=== PATIENT | female | born 1950 | race Caucasian/White ===

== ENCOUNTER 2018-09-23 07:13 | Day surgery (SDC) | payer OTHER ==
--- NOTE | 2018-09-22 10:06 | RAD REPORT ---
EXAM DESCRIPTION: RAD - Chest Pa And Lat (2 Views) - 09/22/2018 9:49 am CLINICAL HISTORY: Preop chest, pending soft tissue mass removal COMPARISON: None. TECHNIQUE: PA and lateral views of the chest were obtained. FINDINGS: The lungs are underinflated. Fibrotic lung pattern is present accentuated by the shallow i nspiration. Lung markings are slightly more pronounced in the left base. There is no indication of an y acute symptoms in this is likely asymmetric fibrosis. No failure or volume overload. Heart size i s normal and central vasculature is within normal limits. No pleural effusion or pneumothorax seen. No acute bony finding noted. No aortic abnormality. IMPRESSION: Shallow inspiration film with fibrotic lung changes evident. No acute cardiopulmonary fi nding.
[2018-09-22 10:32] LABS: Absolute Lymphocytes (CBC) 8.5 K/uL (0.7-4.9); Absolute Monocytes 0.9 K/uL (0.1-1.3); Absolute Neutrophil 11.5 K/uL (1.8-8.0); Basophils % 0.9 % (0-1.3); Hematocrit 45.5 % (36.0-45.0); MPV 10.4 fL (7.6-11.3); Monocytes % 4.3 % (3.3-12.3); RBC Red Blood Cell Count 5.03 M/uL (3.86-4.86)
[2018-09-22 10:49] LABS: Potassium 3.1 mmol/L (3.5-5.1)
[2018-09-22 12:13] LABS: Blood Morphology Comment NOT SEEN (NOT SEEN); Platelet Estimate ADEQ
--- NOTE | 2018-09-22 12:39 | EKG ---
Test Date: 2018-09-22 Test Time: 09:26:56 Paedodontist: DIANNE MEASUREMENT RESULTS: Intervals: Rate: 80 ND: 150 QRSD: 84 QT: 388 QTc: 447 [place]: P: 29 ND: 150 QRS: 20 T: 38 INTERPRETIVE STATEMENTS: Normal sinus rhythm Normal ECG Compared to ECG 08/16/1992 06:07:00 No significant changes Electronically Signed On 09-22-18 12:38:18 CDT by Ian Rowe
[2018-09-23 07:43] LABS: Urine Appearance CLEAR; Urine Bilirubin NEGATIVE (NEG); Urine Blood NEGATIVE (NEG); Urine Color YELLOW; Urine Glucose NEGATIVE (NEG); Urine Protein NEGATIVE (NEG); Urine Specific Gravity 1.025 (1.005-1.030); Urine Urobilinogen 0.2 mg/dL (0.2-1.0)
[2018-09-23] MEDS ORDERED: Ringers Lactate 1,000 ML IV ONE (07:51)
[2018-09-23] MEDS ORDERED: CEFAZOLIN/SWI 1gm 1 GM/10 ML SYR ONE (07:51)
[2018-09-23 07:58] LABS: Urine Microscopic Reflex ORDER UMIC
[2018-09-23 08:04] LABS: Urine Bacteria <20 /HPF (<20); Urine Culture Reflex Order NOT NEEDED; Urine RBC <5 /HPF (NONE SEEN)
[2018-09-23] MEDS ORDERED: PROPOFOL 200 MG/20 ML VIAL IV ONE (08:31)
[2018-09-23] MEDS ORDERED: LIDOCAINE 2% MPF 5 ML VIAL ONE (08:32)
[2018-09-23] MEDS ORDERED: MIDAZOLAM HCL 2 MG/2 ML INJ ONE (08:32)
[2018-09-23] MEDS ORDERED: FENTANYL CITR 100 MCG/2 ML ONE (08:32)
[2018-09-23] MEDS ORDERED: DEXAMETHASONE 4 MG/ML VIAL ONE (08:59)
[2018-09-23] MEDS ORDERED: KETOROLAC 30 MG/ML INJ ONE (08:59)
[2018-09-23] MEDS ORDERED: ONDANSETRON 4 MG/2 ML VIAL ONE (09:23)
--- NOTE | 2018-09-23 09:38 | P.BOP ---
Preoperative diagnosis: tender scalp mass Postoperative diagnosis: same Primary procedure: Excisional biospy of tender scalp mass 3x3 cm Estimated blood loss: <5cc Specimen: mass Findings: scalp mass Anesthesia: General Complications: None Transferred to: Recovery Room Condition: Good
--- NOTE | 2018-09-24 11:42 | OP ---
Date of Procedure: 09/23/2018 Surgeon: Tevin Hines MD Preoperative Diagnosis: Tender scalp mass. Postoperative Diagnosis: Tender scalp mass. Procedure: Excisional biopsy of tender scalp mass, 3 x 3 cm. Specimen: Mass. Findings: The patient has a subcutaneous mass, goes below the skin, well-delineated, pressing on the area down to bone. The mass was completely excised. Indications: This is a case of a 68-year-old who comes with a tender mass on the scalp region. Etio logy of that is unknown. She has been playing with it a little bit, sometimes just thrash it. It is tender. It is increasing in size. She wants that excised. The benefits, alternatives, and risks o f excision fully explained, which include but are not limited to infection, bleeding, damage to adjac ent structures, anesthesia complication, recurrence, RI, and even . She also understands this m ay not relieve any symptoms. She might need more than one surgical intervention. She was explained the importance of following up for the pathology results. Depending on what we find, we may or may n ot do a frozen section. If we do not do frozen section, then we have to wait for the permanent secti on and then and depends on that may require further excision or not. She understood she was going to leave that area with little alopecia, may have an area with no hair growth. She understood and sign ed a consent. The area of concern was marked by me and the patient in the holding room. Procedure In Detail: The patient was brought to the operating room, placed in supine position. Anes thesia was done without complication. The scalp area was prepped and draped in sterile fashion. Loc al anesthesia was applied. I proceeded to make an incision. When I made the incision, I noticed the patient to have a subcutaneous mass, and the skin seems not to be attached, so we did not do the wed ge skin. We removed the lump that goes all the way down to bone. The mass was removed, and the skin does not seem to be involved with the mass. So, we left that area intact to minimize the chance of alopecia in that region. The mass was excised, sent to the pathologist. Hemostasis obtained, and th en after that we proceeded to close the area with interrupted multiple 3-0 nylon. That was after hem ostasis was obtained and irrigation. The patient tolerated the procedure well. Sterile dressing was placed over the area. The patient was sent to Recovery in stable condition. NEMO/PAMELA Voice ID: [id number] Report ID: [id number]
--- NOTE | 2018-09-24 11:45 | DS ---
Date of Discharge: 09/23/2018 Diagnosis: Tender scalp mass. Procedure: Excisional biopsy of tender subcutaneous scalp mass, 3 x 3 cm. Disposition: Home. Activity: As tolerated. No heavy lifting. Followup: Follow up in my office in 1 week. Call for appointment [phone]. Keep area dry for 24 ho urs then may shower, then put triple antibiotics, and protect from direct sunlight. NEMO/PAMELA Voice ID: [id number] Report ID: [id number]
== END 2018-09-23 10:35 | disposition home or self-care (01) ==
LOC: OR 07:13
PROVIDERS: ATTEND Surgery
PROC: 0JB00ZZ Excision of Scalp Subcutaneous Tissue and Fascia, Open Approach (ICD-10-PCS; principal; 2018-09-23 09:00)
DX: L72.11 Pilar cyst (principal); I10 Essential (primary) hypertension; K21.9 Gastro-esophageal reflux disease without esophagitis; E66.9 Obesity, unspecified; Z68.31 Body mass index [BMI] 31.0-31.9, adult; F17.200 Nicotine dependence, unspecified, uncomplicated; Z79.82 Long term (current) use of aspirin; Z82.49 Family history of ischemic heart disease and other diseases of the circulatory system
CPT/HCPCS: 93005; 87088; 85025; 87086; 80048; 36415; 88304; 71046; 11423; J2704; J2250; J3010; J0690; J2405; 81003; 81015

== ENCOUNTER 2024-09-06 15:38 | Emergency (ER) | payer MEDICARE ==
[2024-09-06 17:05] LABS: Anion Gap 12.1 mEq/L (5.0-15.0); Potassium 3.1 mEq/L (3.5-5.1)
[2024-09-06 17:13] LABS: Absolute Basophils 0.1 K/uL (0-0.5); Absolute Eosinophils 0.5 K/uL (0-0.5); Absolute Lymphocytes (CBC) 2.9 K/uL (0.7-4.9); Absolute Monocytes 0.7 K/uL (0.1-1.3); Absolute Neutrophil 6.7 K/uL (1.8-8.0); Basophils % 1.1 % (0-1.3); Eosinophils % 4.2 % (0-4.4); Hematocrit 38.7 % (36.0-45.0); Hemoglobin 12.8 g/dL (12.0-15.0); Lymphocytes % 26.7 % (15.3-44.8); MCH 27.3 pg (27.0-35.0); MCHC 33.1 g/dL (32.0-36.0); MCV 82.2 fL (80-100); Monocytes % 6.7 % (3.3-12.3); Neutrophils % 61.3 % (41.7-73.7); Platelets 289 thou/uL (152-406); Red Cell Distribution Width 22.6 % (12.1-15.2)
--- NOTE | 2024-09-06 17:17 | RAD REPORT ---
Exam:Hip Left 2 View HISTORY: Left hip pain FINDINGS: Left hip arthroplasty. No fracture or dislocation seen.
--- NOTE | 2024-09-06 17:17 | RAD REPORT ---
Exam:Hip Right 2 View HISTORY: Right hip pain FINDINGS: Right hip arthroplasty. Prosthesis in good position. No fracture or dislocation seen.
--- NOTE | 2024-09-06 17:57 | RAD REPORT ---
EXAMINATION: CT HEAD WITHOUT CONTRAST CT CERVICAL SPINE WITHOUT CONTRAST CLINICAL INDICATION: Head and neck injury status post fall. Head and neck pain TECHNIQUE: Axial CT images from the skull base to the vertex without intravenous contrast. Axial CT i mages through the cervical spine were obtained without intravenous contrast. Sagittal and coronal reformatted images were created from the data set. Coronal and sagittal reformatted images were creat ed from the data set. One or more of the following dose reduction techniques were used: Automated exposure control, adjustment of the mA and/or kV according to patient size, and/or iterative reconstr uction. Unless otherwise specified, incidental findings do not require dedicated imaging follow-up. [id number]. Comparison: none FINDINGS: An intracranial bleed is not seen. Ventricles are normal in caliber. Mild to moderate low-density paraventricular, deep and subcortical white matter probably ischemic javon nges secondary to small vessel disease. No extra-axial fluid collection. No fluid within the sinuses/mastoids Images of the cervical spine are degraded by patient motion artifact. No gross fracture or dislocation seen. IMPRESSION: No acute intracranial abnormality noted Suboptimal evaluation of the cervical spine secondary to motion artifact. No gross fracture visualize d.
--- NOTE | 2024-09-06 18:12 | EDPHYS ---
Physician Documentation [facility] Name: Leti Schultz Age: 73 yrs Sex: Female : 1950 Arrival Date: 09/06/2024 Time: 15:38 Bed 26 Private MD: ED Physician Papito Mariscal HPI: 09/06 18:13 This 73 yrs old Unknown Female presents to ER via EMS with complaints of FALL. ms3 18:13 73-year-old female with past medical history of diabetes, hypertension, ms3 hypercholesterolemia, myocardial infarction presents to the emergency department for falls. Patient was discharged from senior living facility earlier today. In discussion with senior living facility patient has home health arranged, wheelchair, bedside commode, hospital bed coming to her house.. Historical: - Allergies: 16:17 No Known Allergies; dd2 - PMHx: 16:17 Diabetes mellitus; Hypertensive disorder; Hypercholesterolemia; Myocardial infarction; dd2 - PSHx: 16:17 HYSTERECTOMY; SILVIA HIP REPLACEMENT; CABG; dd2 - Immunization history:: Adult Immunizations up to date. - Infectious Disease History:: Denies. - Social history:: Smoking status: Patient/guardian denies using tobacco, but has a distant history of tobacco abuse. ROS: 18:13 Constitutional: Negative for fever, and chills. Cardiovascular: Negative for chest ms3 pain, and palpitations. Respiratory: Negative for shortness of breath, cough, wheezing, and pleuritic chest pain, Abdomen/GI: Negative for abdominal pain, nausea, vomiting, diarrhea, and constipation, MS/Extremity: Negative for injury and deformity, Skin: Negative for injury, rash, and discoloration, Exam: 18:13 Constitutional: This is a well developed, well nourished patient who is awake, alert, ms3 and in no acute distress. Cardiovascular: Regular rate and rhythm with a normal S1 and S2. No gallops, murmurs, or rubs. Normal PMI, no JVD. No pulse deficits. Respiratory: Lungs have equal breath sounds bilaterally, clear to auscultation and percussion. No rales, rhonchi or wheezes noted. No increased work of breathing, no retractions or nasal flaring. Abdomen/GI: Soft, non-tender, with normal bowel sounds. No distension or tympany. No guarding or rebound. No evidence of tenderness throughout. Skin: Warm, dry with normal turgor. Normal color with no rashes, no lesions, and no evidence of cellulitis. 18:13 Musculoskeletal/extremity: Right foot in boot. Vital Signs: 16:15 BP 146 / 69; Pulse 72; Resp 17; Temp 98.3; Pulse Ox 98% on R/A; dd2 18:30 BP 134 / 63; Pulse 70; Resp 16; Pulse Ox 98% on R/A; dd2 [place] Coma Score: 16:31 Eye Response: spontaneous(4). Motor Response: obeys commands(6). Verbal Response: dd2 oriented(5). Total: 15. MDM: 15:39 Medical Screening Exam initiated ms3 18:13 Differential diagnosis: abrasion, closed head injury, contusion, fracture, sprain, ms3 strain. Data reviewed: vital signs, nurses notes, lab test result(s), radiologic studies, CT scan, plain films, and as a result, I will discharge patient. Independent interpretation of the following test(s) in the Emergency Department X-Ray: My interpretation is Right hip x-ray image reviewed by me do not reveal fracture. Care significantly affected by the following chronic conditions: Diabetes, Hypertension. Special discussion: I discussed with the patient/guardian in detail that at this point there is no indication for admission to the hospital. It is understood, however, that if the symptoms persist or worsen the patient needs to return immediately for re-evaluation. ED course: Discussed discharge with patient's niece. She understands agrees with plan. Prescription given for wheelchair and bedside commode. Patient will follow-up with her primary care physician, Dr. Desai, tomorrow for help with home health orders.. 05 15:43 Order name: CBC with Diff; Complete Time: 17:41 ms3 09/06 15:43 Order name: BMP; Complete Time: 17:41 ms3 09/06 15:43 Order name: CT Head C Spine; Complete Time: 17:59 ms3 09/06 15:44 Order name: Hip Right 2 View XRAY; Complete Time: 17:41 ms3 09/06 15:44 Order name: Hip Left 2 View XRAY; Complete Time: 17:41 ms3 09/06 16:17 Order name: Labs - recollect needed: purple and green; Complete Time: 16:59 bc6 Administered Medications: No medications were administered Disposition Summary: 09/06/24 18:11 Discharge Ordered Notes: Location: Home ms3 Condition: Stable ms3 Diagnosis - Fall on same level, unspecified ms3 - Muscle weakness (generalized) ms3 Followup: ms3 - With: Denny Desai DO - When: 2 - 3 days - Reason: Recheck today's complaints Discharge Instructions: - Discharge Summary Sheet ms3 - Fall Prevention in the Home, Adult ms3 - Weakness, [id number] ms3 Forms: - Medication Reconciliation Form ms3 - Antibiotic Education ms3 - Prescription Opioid Use ms3 - Patient Portal Instructions ms3 - Leadership Thank You Letter ms3 - SBAR form bc6 Prescriptions: - Wheelchair - One wheelchair unit; ; Refills: 0, Product Selection Permitted ms3 - Bedside commode - use 1 unit RECTAL route Use as Directed; 1 unit; Refills: 0, Product Selection ms3 Permitted Signatures: Dispatcher [employer] Papito Méndez DO DO ms3 Deysi Barillas bc6 HOLLY SAMPSON, RN RN dd2
--- NOTE | 2024-09-06 18:12 | ER ---
Nurse's Notes [facility] Name: Leti Schultz Age: 73 yrs Sex: Female : 1950 Arrival Date: 09/06/2024 Time: 15:38 Bed 26 Private MD: Diagnosis: Fall on same level, unspecified;Muscle weakness (generalized) Presentation: 09/06 16:03 Chief complaint: Chief complaint: EMS states: PT WAS RELEASED FROM [place] IN [place] TODAY DUE dd2 TO 100 DAYS OF INSURANCE COMPLETED AND WENT HOME AND FELL TWICE. PT DENIES LOC, DENIES HITTING HEAD. PT REPORTS THAT NIECE BROKE HER FALL. PT IS WEARING BOOT RT FOOT R/T ANKLE SX IN [place]. 16:15 Coronavirus screen: At this time, the client does not indicate any symptoms associated dd2 with coronavirus-19. Ebola Screen: No symptoms or risks identified at this time. Initial Sepsis Screen: Does the patient meet any 2 criteria? No. Patient's initial sepsis screen is negative. Does the patient have a suspected source of infection? No. Patient's initial sepsis screen is negative. Risk Assessment: Do you want to hurt yourself or someone else? Patient reports no desire to harm self or others. Onset of symptoms was September 06, 2024. 16:15 Method Of Arrival: EMS: [facility] dd2 16:15 Acuity: ISA 3 dd2 Triage Assessment: 16:17 General: Appears in no apparent distress. Behavior is calm, cooperative, appropriate dd2 for age. Pain: Complains of pain in right foot. EENT: No deficits noted. No signs and/or symptoms were reported regarding the EENT system. 16:29 Neuro: No deficits noted. Level of Consciousness is awake, alert, obeys commands, dd2 Oriented to person, place, time, situation, Appropriate for age. Cardiovascular: No deficits noted. Patient's skin is warm and dry. Respiratory: No deficits noted. Airway is patent Respiratory effort is even, unlabored, Respiratory pattern is regular, symmetrical. GI: No deficits noted. No signs and/or symptoms were reported involving the gastrointestinal system. Abdomen is non-distended, obese, Abd is soft and non tender X 4 quads. : No deficits noted. No signs and/or symptoms were reported regarding the genitourinary system. Derm: No deficits noted. No signs and/or symptoms reported regarding the dermatologic system. Musculoskeletal: Circulation, motion, and sensation intact. Range of motion: PT HAS LIMITED ROM IN RLE. RT FOOT IN SURGICAL BOOT DUE TO RT ANKLE SURGERY APPROX 3 MONTHS PRIOR. Reports pain in left hip and right hip and right foot. Historical: - Allergies: 16:17 No Known Allergies; dd2 - PMHx: 16:17 Diabetes mellitus; Hypertensive disorder; Hypercholesterolemia; Myocardial infarction; dd2 - PSHx: 16:17 HYSTERECTOMY; SILVIA HIP REPLACEMENT; CABG; dd2 - Immunization history:: Adult Immunizations up to date. - Infectious Disease History:: Denies. - Social history:: Smoking status: Patient/guardian denies using tobacco, but has a distant history of tobacco abuse. Screenin:31 [facility] ED Fall Risk Assessment (Adult) History of falling in the last 3 months, dd2 including since admission Yes- physiologic fall (2 pts) Confusion or Disorientation No (0 pts) Intoxicated or Sedated No (0 pts) Impaired Gait Yes (1 pt) Mobility Assist Device Used Yes (1 pt) Altered Elimination No (0 pt) Score/Fall Risk Level 3 or more points = High Risk Oriented to surroundings, Maintained a safe environment, Educated pt \T\ family on fall prevention, incl call for assistance when getting out of bed, Assessed \T\ reinforced patient's understanding of fall precautions, Hourly rounding (assess needs \T\ fall precautionary measures) done, Used ambulatory aids as needed (educated on \T\ assisted with), Offered frequent toileting (1:1 observation). Abuse screen: Denies threats or abuse. Denies injuries from another. Nutritional screening: No deficits noted. Tuberculosis screening: No symptoms or risk factors identified. Assessment: 16:31 Reassessment: SEE TRIAGE ASSESSMENT FOR FULL ASSESSMENT. dd2 Vital Signs: 16:15 BP 146 / 69; Pulse 72; Resp 17; Temp 98.3; Pulse Ox 98% on R/A; dd2 18:30 BP 134 / 63; Pulse 70; Resp 16; Pulse Ox 98% on R/A; dd2 [place] Coma Score: 16:31 Eye Response: spontaneous(4). Motor Response: obeys commands(6). Verbal Response: dd2 oriented(5). Total: 15. ED Course: 15:39 Patient arrived in ED. ms3 15:39 Nixon Millan MD is Attending Physician. sp3 15:40 Attending Physician role handed off by Nixon Millan MD ms3 15:40 Papito Mariscal DO is Attending Physician. ms3 16:00 HOLLY SAMPSON, ZEKE is Primary Nurse. dd2 16:15 Arm band placed on right wrist. dd2 16:17 Triage completed. dd2 16:30 Hip Right 2 View XRAY In Process Unspecified. EDMS 16:30 Hip Left 2 View XRAY In Process Unspecified. EDMS 16:31 Patient has correct armband on for positive identification. Bed in low position. Call dd2 light in reach. Side rails up X2. Client placed on continuous cardiac and pulse oximetry monitoring. NIBP monitoring applied. Door closed. Noise minimized. Warm blanket given. Pillow given. Verbal reassurance given. 16:31 No provider procedures requiring assistance completed. Initial lab(s) drawn, by ED dd2 staff, sent to lab. Inserted saline lock: 22 gauge in right wrist, using aseptic technique. Blood collected. Flushed with 10 mL NS. Patient maintains SpO2 saturation greater than 95% on room air. 16:57 CT Head C Spine In Process Unspecified. EDMS 18:11 Denny Desai DO is Referral Physician. ms3 18:30 Provided Education on: D/C EDUCATION. dd2 18:30 IV discontinued, intact, bleeding controlled, No redness/swelling at site. Pressure dd2 dressing applied. Administered Medications: No medications were administered Medication: 16:31 VIS not applicable for this client. dd2 Outcome: 18:11 Discharge ordered by . ms3 18:30 Discharged to home via ambulance, dd2 18:30 Condition: stable 18:30 Discharge instructions given to patient, family, Instructed on discharge instructions, follow up and referral plans. Demonstrated understanding of instructions, follow-up care, 18:46 Patient left the ED. dd2 Signatures: Dispatcher [employer] EDRI Papito Mariscal DO DO ms3 Nixon Millan MD MD sp3 HOLLY SAMPSON, RN RN dd2 Corrections: (The following items were deleted from the chart) 16:17 16:03 Chief complaint: dd2 dd2 16:31 16:17 EENT: No deficits noted. No signs and/or symptoms were reported regarding the dd2 EENT system. dd2 17:55 16:29 Musculoskeletal: Circulation, motion, and sensation intact. Range of motion: dd2 intact in all extremities, Reports pain in left hip and right hip and right foot dd2
[2024-09-06 19:39] VITALS: TEMP 98.3; O2SAT 98
[2024-09-06 19:41] VITALS: BP 134/63
== END 2024-09-06 18:46 | disposition home or self-care (01) ==
LOC: ER 15:38
DX: M62.81 Muscle weakness (generalized) (principal); W18.30XA Fall on same level, unspecified, initial encounter; E11.9 Type 2 diabetes mellitus without complications; I10 Essential (primary) hypertension; I25.2 Old myocardial infarction; Z95.1 Presence of aortocoronary bypass graft; Z96.643 Presence of artificial hip joint, bilateral
CPT/HCPCS: 36415; 70450; 72125; 80048; 85025; 99284

== ENCOUNTER 2024-09-13 08:46 | Emergency (ER) | payer MEDICARE ==
[2024-09-13 11:05] LABS: Albumin 3.2 g/dL (3.4-5.0); Albumin/Globulin Ratio 0.9 (1.1-1.8); Anion Gap 11.2 mEq/L (5.0-15.0); Bilirubin Total 0.3 mg/dL (0.2-1.0); Globulin 3.5 g/dL (2.3-3.5); Potassium 3.2 mEq/L (3.5-5.1); Protein, Total 6.7 g/dL (6.4-8.2)
[2024-09-13 11:13] LABS: Absolute Basophils 0.1 K/uL (0-0.5); Absolute Eosinophils 0.6 K/uL (0-0.5); Absolute Monocytes 0.6 K/uL (0.1-1.3); Absolute Neutrophil 3.5 K/uL (1.8-8.0); Basophils % 1.8 % (0-1.3); Eosinophils % 8.6 % (0-4.4); Hematocrit 37.1 % (36.0-45.0); Hemoglobin 12.3 g/dL (12.0-15.0); Lymphocytes % 29.7 % (15.3-44.8); MCH 26.8 pg (27.0-35.0); MCV 81.2 fL (80-100); Monocytes % 9.5 % (3.3-12.3); Neutrophils % 50.4 % (41.7-73.7); Nucleated Red Blood Cells % 0.2 % (0-0); Platelets 283 thou/uL (152-406); RBC Red Blood Cell Count 4.57 M/uL (3.86-4.86); Red Cell Distribution Width 21.1 % (12.1-15.2)
--- NOTE | 2024-09-13 11:36 | RAD REPORT ---
EXAMINATION: CT Abdomen Pelvis W Contrast CLINICAL INDICATION: Female, 73 years old. ABD PAIN TECHNIQUE: CT abdomen and pelvis was performed, after the administration of IV contrast, as per [facility] protocol. Axial, sagittal and coronal reconstructions were obtained. One or more of the following dose reduction techniques were used: Automated exposure control, adjustment of the mA and k V according to patient size, and iterative reconstruction. Unless otherwise specified, incidental findings do not require dedicated imaging follow-up. COMPARISON: No prior exam. FINDINGS: LOWER CHEST: Bibasilar peripheral predominant reticular opacities with volume loss, suggesting chroni c interstitial or fibrotic lung disease. LIVER: Normal in size and contour. No focal lesion. BILIARY SYSTEM: Small layering gallstones near the fundus. No other suspicious abnormalities. SPLEEN: Normal size. No focal lesion. PANCREAS: No mass, ductal dilation, or tony-pancreatic fluid. ADRENALS: Nonnodular bilateral symmetric thickening nonspecific; with no mass. KIDNEYS: Normal size and contour apart from focus of peripheral cortical mineralization anteriorly on the right. No hydronephrosis. Right lower calyx calculi, collectively measuring up to 8 mm. URINARY BLADDER: Unremarkable. GASTROINTESTINAL TRACT: No evidence of free air, significant intra-abdominal free fluid, bowel obstru ction or abscess. APPENDIX: Normal appendix. LYMPH NODES: No lymphadenopathy. MUSCULOSKELETAL: No acute or suspicious osseous abnormality. ADDITIONAL FINDINGS: None. IMPRESSION: Nonobstructing right lower renal calyx calculi up to 8mm in transverse dimension. Mild cholelithiasis and other incidental findings as above. No other acute or concerning abnormalities seen in the abdomen or pelvis.
[2024-09-13 14:18] LABS: Anisocytosis 1+; Blood Morphology Comment NOTED (NOT SEEN); Platelet Estimate ADEQ; White Blood Cell Scan OK (OK)
--- NOTE | 2024-09-13 14:40 | ER ---
Nurse's Notes [facility] Name: Leti Schultz Age: 73 yrs Sex: Female : 1950 Arrival Date: 09/13/2024 Time: 08:46 Bed 18 Private MD: Diagnosis: Constipation;Lower abdominal pain, unspecified Presentation: 09/13 08:52 Chief complaint: Patient states: she hasn't had a bowel movement in 6 days. patient ap3 reports that her last bowel movement was 5/13 and was "just water". patient states she has still been eating and tolerating it until yesterday when she began getting nauseated and vomiting. patient currently rates her abdominal pain as a 5/10 on the pain scale. Coronavirus screen: At this time, the client does not indicate any symptoms associated with coronavirus-19. Ebola Screen: No symptoms or risks identified at this time. Initial Sepsis Screen: Does the patient meet any 2 criteria? No. Patient's initial sepsis screen is negative. Does the patient have a suspected source of infection? No. Patient's initial sepsis screen is negative. Risk Assessment: Do you want to hurt yourself or someone else? Patient reports no desire to harm self or others. Onset of symptoms was September 07, 2024. 08:52 Method Of Arrival: EMS: [facility] ap3 08:52 Acuity: ISA 3 ap3 Triage Assessment: 08:54 General: Appears in no apparent distress. Behavior is calm, cooperative, appropriate ap3 for age. Pain: Complains of pain in abdomen Pain currently is 5 out of 10 on a pain scale. Neuro: Level of Consciousness is awake, alert, obeys commands, Oriented to person, place, time, situation, Appropriate for age. Cardiovascular: Patient's skin is warm and dry. Respiratory: Airway is patent Respiratory effort is even, unlabored, Respiratory pattern is regular, symmetrical. GI: Reports constipation, nausea, vomiting. Historical: - Allergies: 08:54 No Known Allergies; ap3 - PMHx: 08:54 diabetes mellitus; Hypercholesterolemia; Hypertensive disorder; Myocardial infarction; ap3 - PSHx: 08:54 Amrik hip replacement; CABG; hysterectomy; ap3 - Immunization history:: Client reports receiving the 2nd dose of the Covid vaccine, Flu vaccine is not up to date. - Infectious Disease History:: Denies. - Social history:: Smoking status: Patient denies any tobacco usage or history of. Screenin:55 [facility] ED Fall Risk Assessment (Adult) History of falling in the last 3 months, ap3 including since admission Yes- fall prone (multiple falls) (3 pts) Confusion or Disorientation No (0 pts) Intoxicated or Sedated No (0 pts) Impaired Gait Yes (1 pt) Mobility Assist Device Used Yes (1 pt) Altered Elimination Yes (1 pt) Score/Fall Risk Level 3 or more points = High Risk Oriented to surroundings, Maintained a safe environment, Educated pt \\T\\ family on fall prevention, incl call for assistance when getting out of bed, Assessed \\T\\ reinforced patient's understanding of fall precautions, Hourly rounding (assess needs \\T\\ fall precautionary measures) done, Implemented a Fall Risk Plan of Care, Remained w/in arm's length of patient and in sight while toileting, Remained with patient while ambulating, Utilized family, sitter, or virtual compliance attorney as indicated. Abuse screen: Denies threats or abuse. Nutritional screening: No deficits noted. Tuberculosis screening: No symptoms or risk factors identified. Assessment: 10:00 General: Appears ill, well developed, well nourished, Behavior is calm, cooperative, me1 appropriate for age, Reports she hasn't had a bowel movement in 6 days. patient reports that her last bowel movement was 5/13 and was "just water". patient states she has still been eating and tolerating it until yesterday when she began getting nauseated and vomiting. patient currently rates her abdominal pain as a 5/10 on the pain scale. Pain: Complains of pain in abdomen Pain does not radiate. Pain currently is 5 out of 10 on a pain scale. Quality of pain is described as crampy, Pain began gradually, Is continuous. Neuro: Level of Consciousness is awake, alert, obeys commands, Oriented to person, place, time, situation, Appropriate for age. Cardiovascular: Patient's skin is warm and dry. Respiratory: Airway is patent Respiratory effort is even, unlabored, Respiratory pattern is regular, symmetrical. GI: Abdomen is round Bowel sounds present X 4 quads. Abd is soft X 4 quads. : No signs and/or symptoms were reported regarding the genitourinary system. EENT: No signs and/or symptoms were reported regarding the EENT system. Derm: Skin is intact, is healthy with good turgor, Skin is pink, warm \\T\\ dry. Musculoskeletal: No signs and/or symptoms reported regarding the musculoskeletal system. Vital Signs: 08:52 BP 148 / 59; Pulse 69; Resp 17; Temp 98.1(O); Pulse Ox 96% ; Weight 78.02 kg; Height 5 ap3 ft. 2 in. ; Pain 5/10; 09:55 BP 160 / 66; Pulse 68; Resp 17; Pulse Ox 97% on R/A; ap3 10:30 BP 137 / 68; Pulse 70; Resp 16; Pulse Ox 95% ; me1 11:15 BP 157 / 95; Pulse 68; Resp 15; Pulse Ox 96% ; me1 12:00 BP 153 / 76; Pulse 70; Resp 13; Pulse Ox 97% ; me1 13:00 BP 157 / 72; Pulse 70; Resp 14; Pulse Ox 98% ; me1 14:00 BP 141 / 62; Pulse 72; Resp 15; Pulse Ox 97% ; me1 15:00 BP 132 / 83; Pulse 76; Resp 13; Pulse Ox 96% ; me1 15:40 BP 132 / 83; Pulse 76; Resp 13; Temp 98.4; Pulse Ox 96% ; me1 08:52 Body Mass Index 31.46 (78.02 kg, 157.48 cm) ap3 08:52 Pain Scale: Adult ap3 ED Course: 08:49 Patient arrived in ED. ms3 08:49 Papito Mariscal DO is Attending Physician. ms3 08:51 Janett Lind, RN is Primary Nurse. ap3 08:54 Triage completed. ap3 08:55 Arm band placed on right wrist. ap3 08:55 Patient has correct armband on for positive identification. Bed in low position. Call ap3 light in reach. Side rails up X2. Adult w/ patient. Provided Education on: fall risk education. Client placed on continuous cardiac and pulse oximetry monitoring. NIBP monitoring applied. nuclear monitoring technician on. Pulse ox on. NIBP on. Sitter at bedside. Door closed. Noise minimized. 10:00 No provider procedures requiring assistance completed. me1 10:41 CBC with Diff Sent. me1 10:41 CMP Sent. me1 10:41 Initial lab(s) drawn, by me, sent to lab. Inserted saline lock: 22 gauge in right me1 forearm, using aseptic technique. 10:42 CT Abd/Pelvis - IV Contrast Only In Process Unspecified. EDMS 16:18 IV discontinued, intact, bleeding controlled, No redness/swelling at site. Pressure me1 dressing applied. Administered Medications: 13:57 Drug: soap suds en 1 units CA once Route: CA; me1 15:27 Follow up: Response: No adverse reaction; Marked relief of symptoms me1 Medication: 10:00 VIS not applicable for this client. me1 Outcome: 14:40 Discharge ordered by . ms3 16:25 Discharged to home via ambulance, me1 16:25 Condition: stable 16:25 Discharge instructions given to patient, family, Instructed on discharge instructions, follow up and referral plans. Demonstrated understanding of instructions, follow-up care, 16:25 Patient left the ED. me1 Signatures: Dispatcher [employer] Janett Benitez RN RN ap3 Papito Mariscal DO DO ms3 Eufemia Aj RN RN me1 Corrections: (The following items were deleted from the chart) 11:25 08:52 Chief complaint: Patient states: she hasn't had a bowel movement in 6 days. me1 patient reports that her last bowel movement was 5/13 and was "just water". patient states she has still been eating and tolerating it until yesterday when she began getting nauseated and vomiting. patient currently rates her abdominal pain as a 5/10 on the pain scale. ap3 15:27 15:27 Response: No adverse reaction; Pain is decreased me1 me1
--- NOTE | 2024-09-13 14:40 | EDPHYS ---
Physician Documentation [facility] Name: Leti Schultz Age: 73 yrs Sex: Female : 1950 Arrival Date: 09/13/2024 Time: 08:46 Bed 18 Private MD: ED Physician Papito Mariscal HPI: 09/13 17:51 This 73 yrs old Unknown Female presents to ER via EMS with complaints of Constipation. ms3 17:51 73-year-old female past medical history of diabetes, hypercholesterolemia, ms3 hypertension, myocardial infarction presents to the emergency department for constipation. Patient states she has not had a bowel movement for 6 days. Patient notes she is also having right lower quadrant abdominal pain that she rates a 4-510.. Historical: - Allergies: 08:54 No Known Allergies; ap3 - PMHx: 08:54 diabetes mellitus; Hypercholesterolemia; Hypertensive disorder; Myocardial infarction; ap3 - PSHx: 08:54 Amrik hip replacement; CABG; hysterectomy; ap3 - Immunization history:: Client reports receiving the 2nd dose of the Covid vaccine, Flu vaccine is not up to date. - Infectious Disease History:: Denies. - Social history:: Smoking status: Patient denies any tobacco usage or history of. ROS: 17:51 Constitutional: Negative for fever, and chills. Cardiovascular: Negative for chest ms3 pain, and palpitations. Respiratory: Negative for shortness of breath, cough, wheezing, and pleuritic chest pain, 17:51 MS/Extremity: Negative for injury and deformity, Skin: Negative for injury, rash, and discoloration, 17:51 Abdomen/GI: Positive for abdominal pain, constipation, Exam: 17:51 Constitutional: This is a well developed, well nourished patient who is awake, alert, ms3 and in no acute distress. Cardiovascular: Regular rate and rhythm with a normal S1 and S2. No gallops, murmurs, or rubs. Normal PMI, no JVD. No pulse deficits. Respiratory: Lungs have equal breath sounds bilaterally, clear to auscultation and percussion. No rales, rhonchi or wheezes noted. No increased work of breathing, no retractions or nasal flaring. 17:51 Skin: Warm, dry with normal turgor. Normal color with no rashes, no lesions, and no evidence of cellulitis. 17:51 Abdomen/GI: Inspection: abdomen appears normal, Bowel sounds: normal, Palpation: moderate abdominal tenderness, in the right lower quadrant, Vital Signs: 08:52 BP 148 / 59; Pulse 69; Resp 17; Temp 98.1(O); Pulse Ox 96% ; Weight 78.02 kg; Height 5 ap3 ft. 2 in. ; Pain 5/10; 09:55 BP 160 / 66; Pulse 68; Resp 17; Pulse Ox 97% on R/A; ap3 10:30 BP 137 / 68; Pulse 70; Resp 16; Pulse Ox 95% ; me1 11:15 BP 157 / 95; Pulse 68; Resp 15; Pulse Ox 96% ; me1 12:00 BP 153 / 76; Pulse 70; Resp 13; Pulse Ox 97% ; me1 13:00 BP 157 / 72; Pulse 70; Resp 14; Pulse Ox 98% ; me1 14:00 BP 141 / 62; Pulse 72; Resp 15; Pulse Ox 97% ; me1 15:00 BP 132 / 83; Pulse 76; Resp 13; Pulse Ox 96% ; me1 15:40 BP 132 / 83; Pulse 76; Resp 13; Temp 98.4; Pulse Ox 96% ; me1 08:52 Body Mass Index 31.46 (78.02 kg, 157.48 cm) ap3 08:52 Pain Scale: Adult ap3 MDM: 08:49 Medical Screening Exam initiated ms3 17:51 Differential diagnosis: appendicitis, bowel obstruction, non-specific abd pain. Data ms3 reviewed: vital signs, nurses notes, lab test result(s), radiologic studies, and as a result, I will discharge patient. I considered the following discharge prescriptions or medication management in the emergency department Medications were administered in the Emergency Department. See MAR. Counseling: I had a detailed discussion with the patient and/or guardian regarding the historical points, exam findings, and any diagnostic results supporting the discharge/admit diagnosis, lab results, radiology results, the need for outpatient follow up, to return to the emergency department if symptoms worsen or persist or if there are any questions or concerns that arise at home. Special discussion: Based on the patient's Hx, exam, and Dx evaluation, there is no indication for emergent surgery or inpatient Tx. It is understood by the patient/guardian that if the Sx's persist or worsen they need to return immediately for re-evaluation. ED course: Discussed labs and imaging with patient and her daughter. Patient to follow-up with primary care physician in 2 to 3 days. All questions were answered. Return precautions discussed include worsening symptoms, or any other concerns. Patient states her symptoms have improved after soapsuds enema.. 09/13 10:21 Order name: CBC with Diff ms3 09/13 10:21 Order name: CMP; Complete Time: 11:19 ms3 09/13 11:20 Order name: CBC Smear Scan EDMS 09/13 10:21 Order name: CT Abd/Pelvis - IV Contrast Only; Complete Time: 11:38 ms3 09/13 10:21 Order name: IV Saline Lock; Complete Time: 10:41 ms3 09/13 10:21 Order name: Labs collected and sent; Complete Time: 10:41 ms3 Administered Medications: 13:57 Drug: soap suds en 1 units WI once Route: WI; me1 15:27 Follow up: Response: No adverse reaction; Marked relief of symptoms me1 Disposition Summary: 09/13/24 14:40 Discharge Ordered Notes: Location: Home ms3 Condition: Stable ms3 Diagnosis - Constipation ms3 - Lower abdominal pain, unspecified ms3 Followup: ms3 - With: Private Physician - When: 2 - 3 days - Reason: Recheck today's complaints Discharge Instructions: - Discharge Summary Sheet ms3 - Abdominal Pain, Adult ms3 - Constipation, Adult ms3 Forms: - Medication Reconciliation Form ms3 - Antibiotic Education ms3 - Prescription Opioid Use ms3 - Patient Portal Instructions ms3 - Leadership Thank You Letter ms3 Signatures: Dispatcher [employer] Janett Benitez, RN RN ap3 Papito Mariscal DO DO ms3 Eufemia Aj RN RN me1
[2024-09-13 16:44] VITALS: BP 132/83; O2SAT 96
[2024-09-13 16:45] VITALS: TEMP 98.4
== END 2024-09-13 16:25 | disposition home or self-care (01) ==
LOC: ER 08:46
DX: K59.00 Constipation, unspecified (principal); E11.9 Type 2 diabetes mellitus without complications; I10 Essential (primary) hypertension; Z95.1 Presence of aortocoronary bypass graft; Z96.643 Presence of artificial hip joint, bilateral
CPT/HCPCS: 85025; 36415; 80053; 74177; 99285; Q9967

== ENCOUNTER 2024-09-15 09:01 | Observation (INO) | payer MEDICARE ==
[2024-09-15] MEDS ORDERED: ALBUTEROL 2.5 MG/3 ML NEB SOL ONE (12:44)
[2024-09-15 13:42] LABS: Absolute Eosinophils 0.6 K/uL (0-0.5); Absolute Lymphocytes (CBC) 2.5 K/uL (0.7-4.9); Absolute Monocytes 0.8 K/uL (0.1-1.3); Absolute Neutrophil 4.3 K/uL (1.8-8.0); Basophils % 0.2 % (0-1.3); Eosinophils % 7.8 % (0-4.4); Hematocrit 35.7 % (36.0-45.0); Hemoglobin 11.9 g/dL (12.0-15.0); Lymphocytes % 30.7 % (15.3-44.8); MCH 27.1 pg (27.0-35.0); MCHC 33.3 g/dL (32.0-36.0); MCV 81.4 fL (80-100); MPV 8.6 fL (7.6-11.3); Monocytes % 9.3 % (3.3-12.3); Nucleated Red Blood Cells % 0.1 % (0-0); Platelets 296 thou/uL (152-406); RBC Red Blood Cell Count 4.38 M/uL (3.86-4.86); Red Cell Distribution Width 20.7 % (12.1-15.2)
[2024-09-15 14:00] LABS: Albumin 3.3 g/dL (3.4-5.0); Alkaline Phosphatase 108 U/L (45-117); Anion Gap 7.4 mEq/L (5.0-15.0); BUN Blood Urea Nitrogen 17 mg/dL (7-18); Bicarbonate 29 mEq/L (21-32); Bilirubin Total 0.3 mg/dL (0.2-1.0); Globulin 3.3 g/dL (2.3-3.5); Glomerular Filtration Rate 71 ml/min (=/>90); Glucose Level 101 mg/dL (74-106); Potassium 3.4 mEq/L (3.5-5.1); Protein, Total 6.6 g/dL (6.4-8.2); Sodium Level 139 mEq/L (136-145)
[2024-09-15 14:02] LABS: ALT/SGPT < 14 U/L (13-56); AST/SGOT < 10 U/L (15-37)
[2024-09-15 14:22] LABS: Anisocytosis 1+; Blood Morphology Comment NOTED (NOT SEEN); Microcytosis SLIGHT; Platelet Estimate ADEQ; White Blood Cell Scan OK (OK)
--- NOTE | 2024-09-15 17:27 | ER ---
Nurse's Notes [facility] Name: Leti Schultz Age: 73 yrs Sex: Female : 1950 Arrival Date: 09/15/2024 Time: 09:01 Bed 13 Private MD: Diagnosis: generalized weakness, debility Presentation: 09/15 09:12 Chief complaint: EMS states: C[facility]GIVER ADMITTED LAST NIGHT. PT CALLED 911 FOR FEAR OF bp NOT BEING TAKEN CARE OF. Coronavirus screen: At this time, the client does not indicate any symptoms associated with coronavirus-19. Ebola Screen: No symptoms or risks identified at this time. Initial Sepsis Screen: Does the patient meet any 2 criteria? No. Patient's initial sepsis screen is negative. Does the patient have a suspected source of infection? No. Patient's initial sepsis screen is negative. Risk Assessment: Do you want to hurt yourself or someone else? Patient reports no desire to harm self or others. Onset of symptoms is unknown. Care prior to arrival: Glucose check: 116. 09:12 Method Of Arrival: EMS: [facility] bp 09:12 Acuity: ISA 3 bp Triage Assessment: 09:13 General: Appears in no apparent distress. obese, unkempt, Behavior is cooperative, bp appropriate for age, anxious. Pain: Denies pain. EENT: No deficits noted. Neuro: No deficits noted. Cardiovascular: No deficits noted. Respiratory: No deficits noted. GI: No signs and/or symptoms were reported involving the gastrointestinal system. : No signs and/or symptoms were reported regarding the genitourinary system. Derm: No deficits noted. Musculoskeletal: No deficits noted. Historical: - Allergies: 09:13 No Known Allergies; bp - PMHx: 09:13 Myocardial infarction; Hypertensive disorder; diabetes mellitus; Hypercholesterolemia; bp - PSHx: 09:13 hysterectomy; CABG; Amrik hip replacement; bp - Immunization history:: Adult Immunizations up to date. - Infectious Disease History:: Denies. - Social history:: Smoking status: Patient denies any tobacco usage or history of. - Family history:: not pertinent. Screenin:14 [facility] ED Fall Risk Assessment (Adult) History of falling in the last 3 months, bp including since admission No falls in past 3 months (0 pts) Confusion or Disorientation No (0 pts) Intoxicated or Sedated No (0 pts) Impaired Gait Yes (1 pt) Mobility Assist Device Used Yes (1 pt) Altered Elimination No (0 pt) Score/Fall Risk Level 3 or more points = High Risk Oriented to surroundings. Abuse screen: Denies threats or abuse. Denies injuries from another. Nutritional screening: No deficits noted. Tuberculosis screening: No symptoms or risk factors identified. Assessment: 09:14 General: SEE TRIAGE NOTE. bp 14:00 Reassessment: Patient appears in no apparent distress at this time. Patient and/or kj2 family updated on plan of care and expected duration. Pain level reassessed. Patient is alert, oriented x 3, equal unlabored respirations, skin warm/dry/pink. 14:35 Reassessment: Patient appears in no apparent distress at this time. Patient and/or kj2 family updated on plan of care and expected duration. Pain level reassessed. Patient is alert, oriented x 3, equal unlabored respirations, skin warm/dry/pink. 15:35 Reassessment: Patient appears in no apparent distress at this time. Patient and/or kj2 family updated on plan of care and expected duration. Pain level reassessed. Patient is alert, oriented x 3, equal unlabored respirations, skin warm/dry/pink. 16:35 Reassessment: Patient appears in no apparent distress at this time. Patient and/or kj2 family updated on plan of care and expected duration. Pain level reassessed. Patient is alert, oriented x 3, equal unlabored respirations, skin warm/dry/pink. 17:35 Reassessment: Patient appears in no apparent distress at this time. Patient and/or kj2 family updated on plan of care and expected duration. Pain level reassessed. Patient is alert, oriented x 3, equal unlabored respirations, skin warm/dry/pink. 18:22 Reassessment: Patient appears in no apparent distress at this time. Patient and/or kj2 family updated on plan of care and expected duration. Pain level reassessed. Patient is alert, oriented x 3, equal unlabored respirations, skin warm/dry/pink. 19:15 Reassessment: Patient appears in no apparent distress at this time. Patient and/or kj2 family updated on plan of care and expected duration. Pain level reassessed. Patient is alert, oriented x 3, equal unlabored respirations, skin warm/dry/pink. Vital Signs: 09:12 BP 161 / 83; Pulse 70; Resp 15; Temp 97.5; Pulse Ox 93% on R/A; bp 14:00 BP 137 / 86; Pulse 70; Resp 18; Pulse Ox 97% on R/A; kj2 14:35 BP 135 / 84; Pulse 72; Resp 18; Pulse Ox 100% on R/A; kj2 15:35 BP 134 / 82; Pulse 70; Resp 18; Pulse Ox 100% on R/A; kj2 16:35 BP 132 / 80; Pulse 74; Resp 18; Pulse Ox 100% on R/A; kj2 19:15 BP 130 / 78; Pulse 72; Resp 20; Temp 98; Pulse Ox 100% on R/A; kj2 ED Course: 09:11 Patient arrived in ED. bp 09:12 Harsh Lima MD is Attending Physician. rt 09:13 Triage completed. bp 09:13 Arm band placed on. bp 09:14 Patient has correct armband on for positive identification. bp 09:32 Door closed. Warm blanket given. Repositioned patient. Cleaned of incontinence. Linen bc6 changed. 12:50 Andrew Pabon, RN is Primary Nurse. bp 13:33 Initial lab(s) drawn, by me, sent to lab. bp 14:00 Report received from ZEKE Morales. kj2 17:26 Randy Silva MD is Hospitalizing Provider. rt 20:32 No provider procedures requiring assistance completed. kj2 20:33 Provided Education on: reason for admit. kj2 20:33 Patient did not have IV access during this emergency room visit. kj2 Administered Medications: 12:50 Drug: Albuterol Inhalation 2.5 mg Inhalation once Route: Inhalation; bp 18:23 Drug: Oxymetazoline Intranasal Drops (0.05 %) 1 sprays Intranasal once Route: kj2 Intranasal; Site: both nares; Medication: 09:14 VIS not applicable for this client. bp Outcome: 17:26 Decision to Hospitalize by Provider. rt 20:32 Admitted to Med/surg accompanied by tech, via stretcher, kj2 20:32 Condition: stable 20:32 Instructed on the need for admit, 20:34 Patient left the ED. kj2 Signatures: Andrew Pabon RN RN bp Harsh Lima MD MD rt Deysi Barillas bc6 Jessica Lino, RN RN kj2
--- NOTE | 2024-09-15 17:27 | EDPHYS ---
Physician Documentation [facility] Name: Leti Schultz Age: 73 yrs Sex: Female : 1950 Arrival Date: 09/15/2024 Time: 09:01 Bed 13 Private MD: ED Physician Harsh Lima HPI: 09/15 09:37 This 73 yrs old Unknown Female presents to ER via EMS with complaints of SOCIAL ISSUE. rt 09:37 Patient lives at home with a caregiver who primarily attend to her ADLs. This caregiver rt was admitted to the hospital. The patient states that she is unable to walk, go to the bathroom, feed herself. She called 911 because she was concerned that she had no one to take care of her. States that she has no local family. Denies other acute complaints at this time. Historical: - Allergies: 09:13 No Known Allergies; bp - PMHx: 09:13 Myocardial infarction; Hypertensive disorder; diabetes mellitus; Hypercholesterolemia; bp - PSHx: 09:13 hysterectomy; CABG; Amrik hip replacement; bp - Immunization history:: Adult Immunizations up to date. - Infectious Disease History:: Denies. - Social history:: Smoking status: Patient denies any tobacco usage or history of. - Family history:: not pertinent. ROS: 09:37 Constitutional: Negative for fever, chills, and weight loss, Cardiovascular: Negative rt for chest pain, palpitations, and edema, Respiratory: Negative for shortness of breath, cough, wheezing, and pleuritic chest pain, Abdomen/GI: Negative for abdominal pain, nausea, vomiting, diarrhea, and constipation, Skin: Negative for injury, rash, and discoloration, Exam: 09:37 Constitutional: This is a well developed, well nourished patient who is awake, alert, rt and in no acute distress. Head/Face: Normocephalic, atraumatic. Chest/axilla: Normal chest wall appearance and motion. Nontender with no deformity. No lesions are appreciated. Cardiovascular: Regular rate and rhythm with a normal S1 and S2. No gallops, murmurs, or rubs. Normal PMI, no JVD. No pulse deficits. Respiratory: Lungs have equal breath sounds bilaterally, clear to auscultation and percussion. No rales, rhonchi or wheezes noted. No increased work of breathing, no retractions or nasal flaring. Abdomen/GI: Soft, non-tender, with normal bowel sounds. No distension or tympany. No guarding or rebound. No evidence of tenderness throughout. Skin: Warm, dry with normal turgor. Normal color with no rashes, no lesions, and no evidence of cellulitis. Vital Signs: 09:12 BP 161 / 83; Pulse 70; Resp 15; Temp 97.5; Pulse Ox 93% on R/A; bp 14:00 BP 137 / 86; Pulse 70; Resp 18; Pulse Ox 97% on R/A; kj2 14:35 BP 135 / 84; Pulse 72; Resp 18; Pulse Ox 100% on R/A; kj2 15:35 BP 134 / 82; Pulse 70; Resp 18; Pulse Ox 100% on R/A; kj2 16:35 BP 132 / 80; Pulse 74; Resp 18; Pulse Ox 100% on R/A; kj2 19:15 BP 130 / 78; Pulse 72; Resp 20; Temp 98; Pulse Ox 100% on R/A; kj2 MDM: 09:15 Medical Screening Exam initiated rt 19:51 Differential Diagnosis Generalized weakness, inability to attend to ADLs. Data rt reviewed: vital signs, nurses notes, lab test result(s). Management of patient was discussed with the following: Discussed with Chloe with the social sciences lecturer, appreciate her efforts and arranging for placement, patient likely will be able to go to respite care facility tomorrow.. I considered the following discharge prescriptions or medication management in the emergency department Medications were administered in the Emergency Department. See MAR. Counseling: I had a detailed discussion with the patient and/or guardian regarding the historical points, exam findings, and any diagnostic results supporting the discharge/admit diagnosis, lab results. 09/15 13:19 Order name: CBC with Diff; Complete Time: 14:25 rt 09/15 13:19 Order name: CMP; Complete Time: 14:25 rt 09/15 13:54 Order name: CBC Smear Scan; Complete Time: 14:25 EDFL 09/15 17:52 Order name: Basic Metabolic Panel EDFL 09/15 17:52 Order name: Basic Metabolic Panel EDFL 09/15 17:52 Order name: Basic Metabolic Panel EDFL 09/15 17:52 Order name: Basic Metabolic Panel EDFL 09/15 17:52 Order name: CBC with Automated Diff EDMS 09/15 17:52 Order name: CBC with Automated Diff EDMS 09/15 17:52 Order name: CBC with Automated Diff EDMS 09/15 17:52 Order name: CBC with Automated Diff EDMS 09/15 17:52 Order name: Magnesium EDMS 09/15 17:52 Order name: Magnesium EDMS 09/15 17:52 Order name: Magnesium EDMS 09/15 17:52 Order name: Magnesium EDMS 09/15 17:52 Order name: Phosphorus EDMS 09/15 17:52 Order name: Phosphorus EDMS 09/15 17:52 Order name: Phosphorus EDMS 09/15 17:52 Order name: Phosphorus EDMS 09/15 12:50 Order name: Social Service Consult EDMS Administered Medications: 12:50 Drug: Albuterol Inhalation 2.5 mg Inhalation once Route: Inhalation; bp 18:23 Drug: Oxymetazoline Intranasal Drops (0.05 %) 1 sprays Intranasal once Route: kj2 Intranasal; Site: both nares; Disposition Summary: 09/15/24 17:26 Hospitalization Ordered Notes: Hospitalization Status: Observation rt Provider: Randy Silva rt Location: Telemetry/MedSurg (observation) rt Condition: Stable rt Problem: an ongoing problem rt Symptoms: are unchanged rt Bed/Room Type: Standard rt Room Assignment: 203(09/15/24 18:30) kb3 Diagnosis - generalized weakness, debility rt Forms: - Medication Reconciliation Form rt - SBAR form rt - Leadership Thank You Letter rt Signatures: Dispatcher [employer] EDFL Andrew Pabon, RN RN bp Maris Mclaughlin RN RN kb3 Harsh Lima MD MD rt Jessica Lino RN RN kj2 Corrections: (The following items were deleted from the chart) 13:19 13:19 CBC+H.LAB.BRZ ordered. EDMS EDMS 13:19 13:19 COMPREHENSIVE METABOLIC PANEL+C.LAB.BRZ ordered. EDMS EDMS 18:30 17:26 rt kb3
--- NOTE | 2024-09-15 17:37 | P.HP ---
Certification for Inpatient Patient admitted to: Observation With expected LOS: <2 Midnights <Rika Boyce - Last Filed: 09/15/24 17:51> Patient History Date of Service: 09/15/24 Reason for admission: Generalized weakness, deconditioned History of Present Illness: Leti Schultz is a 73 year old female with PMH Myocardial infarction; Hypertensive disorder; diabetes mellitus; Hypercholesterolemia; who presents with generalized weakness and deconditioning. She reports she is unable to participate in ADLs and her caregiver was admitted to the hospital recently. She reports she is unable to walk, go to the bathroom, and feed herself. Social work has set up [facility] for placement with the patient's brother assisting with payment for 7 days. Will admit to observation with physical therapy and awaiting placement - Past Medical/Surgical History -: ID -: HTN -: Hypercholesterolemia -: DM -: Hysterectomy -: Coronary stent -: marylin hip replacement - Social History Smoking Status: Never smoker Alcohol use: No CD- Drugs: No <Rika Boyce - Last Filed: 09/15/24 17:51> Date of Service: 09/16/24 <Randy Silva - Last Filed: 09/16/24 00:25> Allergies No Known Allergies Allergy (Verified 09/22/18 09:12) Home Medications: Atenolol/Chlorthalidone [Atenolol-Chlorthal 50-25 Tb] 1 each PO DAILY 09/22/18 Multivitamin [Multivitamins] 1 each PO DAILY 09/22/18 Simvastatin 20 mg PO DAILY 09/22/18 Codeine/APAP [Tylenol W/Codeine #3 tab] 1 tab PO Q4HP PRN #30 tab 09/23/18 Sulfamethoxazole/Trimethoprim [Bactrim Ds Tablet] 1 each PO BID #10 tablet 09/23/18 Review of Systems Other: per HPI <Rika Boyce - Last Filed: 09/15/24 17:51> Physical Examination - Physical Exam General: Alert, In no apparent distress, Oriented x3 HEENT: Atraumatic, Normocephalic Neck: Supple Respiratory: Clear to auscultation bilaterally, Normal air movement Cardiovascular: Normal pulses, Regular rate/rhythm, Normal S1 S2 Capillary refill: <2 Seconds Gastrointestinal: Normal bowel sounds, Soft and benign Musculoskeletal: No clubbing Integumentary: No rashes Neurological: Normal speech, Normal tone - Studies Laboratory Data (last 24 hrs) 09/15/24 09/15/24 13:30 13:30 WBC 8.30 Hgb 11.9 L Hct 35.7 L Plt Count 296 Sodium 139 Potassium 3.4 L BUN 17 Creatinine 0.85 Glucose 101 Total Bilirubin 0.3 AST < 10 L ALT < 14 Alkaline Phosphatase 108 <Rika Boyce - Last Filed: 09/15/24 17:51> - Studies Laboratory Data (last 24 hrs) 09/15/24 09/15/24 13:30 13:30 WBC 8.30 Hgb 11.9 L Hct 35.7 L Plt Count 296 Sodium 139 Potassium 3.4 L BUN 17 Creatinine 0.85 Glucose 101 Total Bilirubin 0.3 AST < 10 L ALT < 14 Alkaline Phosphatase 108 <Randy Silva - Last Filed: 09/16/24 00:25> Assessment and Plan - Plan Assessment and Plan Generalized weakness Deconditioned -PT consulted -Social work consulted, [facility] accepted -Supportive care -Reposition every 2 hours DM -accucheck with SSI -Serum glucose 101 HTN Hypercholesterolemia ID -continue home medications DVT ppx SCD full code LOS 24 hour OBS Discharge Plan: [facility] Plan to discharge in: 24 Hours - Advance Directives Does patient have a Living Will: No Does patient have a Durable POA for Healthcare: No <Rika Boyce - Last Filed: 09/15/24 17:51> Physician Review: Patient Assessed, Agree with Above Assessment and Plan <Randy Silva - Last Filed: 09/16/24 00:25>
[2024-09-15] MEDS: FLUTICASONE 50MCG NASAL SPRAY NAS SCH (17:49)
[2024-09-15] MEDS ORDERED: OXYMETAZOLINE HCL 0.05% 30ML NAS ONE (17:59)
[2024-09-15] MEDS ORDERED: GLUCAGON 1 MG/VIAL IV PRN (18:01)
[2024-09-15] MEDS ORDERED: D50W 25 GM/50 ML SYRINGE IV PRN (18:01)
[2024-09-15 20:46] VITALS: O2SAT 100
[2024-09-15] MEDS: INSULIN REGULAR (HUMAN) 100 UNIT/ML SQ SCH (20:47)
[2024-09-15] MEDS: ACETAMINOPHEN 325 MG TABLET PO PRN (20:49)
[2024-09-15 21:50] VITALS: BMI 31.1
[2024-09-16] MEDS: HYDRALAZINE HCL 20 MG/ML VIAL IV PRN (05:03)
[2024-09-16] MEDS: ONDANSETRON 4 MG/2 ML VIAL IV PRN (05:36)
[2024-09-16 07:46] LABS: Absolute Eosinophils 0.6 K/uL (0-0.5); Absolute Lymphocytes (CBC) 1.9 K/uL (0.7-4.9); Absolute Monocytes 0.7 K/uL (0.1-1.3); Absolute Neutrophil 5.8 K/uL (1.8-8.0); Basophils % 0.1 % (0-1.3); Eosinophils % 6.7 % (0-4.4); Hematocrit 35.7 % (36.0-45.0); Hemoglobin 11.8 g/dL (12.0-15.0); Lymphocytes % 21.4 % (15.3-44.8); MCH 26.7 pg (27.0-35.0); MCV 80.9 fL (80-100); MPV 8.7 fL (7.6-11.3); Monocytes % 7.3 % (3.3-12.3); Neutrophils % 64.5 % (41.7-73.7); Nucleated Red Blood Cells % 0.2 % (0-0); Platelets 318 thou/uL (152-406); RBC Red Blood Cell Count 4.41 M/uL (3.86-4.86); Red Cell Distribution Width 20.4 % (12.1-15.2)
[2024-09-16 07:59] LABS: Anion Gap 13.1 mEq/L (5.0-15.0); Magnesium 1.6 mg/dL (1.6-2.4); Phosphorus 3.8 mg/dL (2.5-4.9); Potassium 3.1 mEq/L (3.5-5.1)
--- NOTE | 2024-09-16 12:13 | P.DS ---
Admission Date: 09/15/24 Discharge Date: 09/16/24 Disposition: TRANSFER TO SNF - REHAB Discharge Condition: GOOD Reason for Admission: Generalized weakness, deconditioned Hospital Course: Generalized weakness Deconditioned -DC to nursing facility DM -resume lantus HTN Hypercholesterolemia MN -continue home medications 73-year-old patient admitted to the hospital as she was not able to take care of herself and the caregiver was admitted to the hospital, social media content manager was consulted, they found a place for her at a assisted, when I see the patient today she is doing well without any acute problems, she feels ready to go to assisted until her caregiver is released from the hospital. Otherwise no other acute issues going on so I am planning to discharge her to go to assisted. Subjective: No chest pain. Chronic shortness of breath per patient. No nausea or vomiting. No abdominal pain. No obvious bleeding. Looks comfortable in the bed. Objective: General appearance: Alert and comfortable CVS: Normal S1 and S2 Lungs: Clear to auscultation bilaterally Abdomen: Soft, bowel sounds present, no tenderness Extremities: No lower extremity edema Vital Signs/Physical Exam: Temp Pulse Resp BP Pulse Ox 97.4 F 81 12 117/59 L 95 09/16/24 08:00 09/16/24 08:00 09/16/24 08:00 09/16/24 08:00 09/16/24 08:00 Laboratory Data at Discharge: WBC 8.90 thou/uL (4.3-10.9) 09/16/24 07:26 Hgb 11.8 g/dL (12.0-15.0) L 09/16/24 07:26 Hct 35.7 % (36.0-45.0) L 09/16/24 07:26 Plt Count 318 thou/uL (152-406) 09/16/24 07:26 Sodium 139 mEq/L (136-145) 09/16/24 07:26 Potassium 3.1 mEq/L (3.5-5.1) L 09/16/24 07:26 BUN 14 mg/dL (7-18) 09/16/24 07:26 Creatinine 0.73 mg/dL (0.55-1.02) 09/16/24 07:26 Glucose 173 mg/dL (74-106) H 09/16/24 07:26 Phosphorus 3.8 mg/dL (2.5-4.9) 09/16/24 07:26 Magnesium 1.6 mg/dL (1.6-2.4) 09/16/24 07:26 Total Bilirubin 0.3 mg/dL (0.2-1.0) 09/15/24 13:30 AST < 10 U/L (15-37) L 09/15/24 13:30 ALT < 14 U/L (13-56) 09/15/24 13:30 Alkaline Phosphatase 108 U/L (45-117) 09/15/24 13:30 Home Medications: Atorvastatin Calcium [Lipitor] 80 mg PO BEDTIME 09/16/24 Bupropion *Xl* [Wellbutrin XL*] 150 mg PO DAILY 09/16/24 Clopidogrel Bisulfate [Plavix] 75 mg PO DAILY 09/16/24 Folic Acid 1 mg PO DAILY 09/16/24 Gabapentin 300 mg PO BID 09/16/24 Insulin Glargine,Hum.rec.anlog [Lantus Solostar] 09/16/24 Magnesium Oxide 400 mg PO BID 09/16/24 Metoprolol Tartrate 25 mg PO BID 09/16/24 OLANZapine [Zyprexa*] 5 mg PO BEDTIME 09/16/24 Omeprazole 20 mg PO DAILY 09/16/24 Sacubitril/Valsartan [Entresto 24 mg-26 mg Tablet] 0.5 tab PO BID 09/16/24 Spironolactone [Aldactone*] 25 mg PO DAILY 09/16/24 Trazodone [Desyrel*] 50 mg PO BEDTIME 09/16/24 Diet: ADA Activity: Ad helene Followup: Denny Desai DO [Primary Care Provider] - 1-2 Weeks
[2024-09-16 12:14] VITALS: BP 173/80; TEMP 98
[2024-09-16] MEDS: POTASSIUM CL SA 10 MEQ TAB PO ONE (12:39)
[2024-09-16] MEDS: METOPROLOL TAR 25 MG TAB PO SCH (12:40)
[2024-09-16] MEDS: SACUBITRIL/VALSARTAN 24/26 MG TAB PO SCH (12:40)
== END 2024-09-16 14:35 ==
LOC: ER 09:01 → ERHOLD 17:46 → 2ND 19:41
PROVIDERS: ADMIT Family Medicine; ATTEND Hospitalist
DX: R53.1 Weakness (principal); I25.2 Old myocardial infarction; I10 Essential (primary) hypertension; E11.9 Type 2 diabetes mellitus without complications; E78.00 Pure hypercholesterolemia, unspecified; Z96.643 Presence of artificial hip joint, bilateral
CPT/HCPCS: 85025 ×2; 80048; 36415; 83735; 84100; 82947 ×3; 80053; 99285; J0360; J7613; J2405; J1815; G0378